=== PATIENT | female | born 1950 | race Caucasian/White ===

== ENCOUNTER 2016-10-11 13:25 | Inpatient (IN) | payer MEDICARE ==
--- NOTE | 2016-10-11 15:01 | HP ---
SUPERVISING PHYSICIAN: Geo Beth M.D. CHIEF COMPLAINT: Asthma exacerbation. HISTORY OF PRESENT ILLNESS: Ms. Salguero is a 66 year-old female patient who has a history of asthma. She notes that she had been having an asthma attack daily for the last several days and had been using her nebulizer treatments, including Albuterol, without any significant relief. She was experiencing some chest tightness, increasing cough with some lower extremity edema and significant orthopnea with wheezing. She presented to the clinic today for evaluation and was found to be satting 83% on room air in Dr. Beth' office. She was in mild distress and given the underlying medical history of asthma with severe exacerbations in the past and having been requiring hospitalization in 2011 complicated by pneumonia MRSA, she was sent to the hospital for admission with an acute exacerbation of asthma with hypoxia. PAST MEDICAL HISTORY: 1. Asthma. 2. Hypertension. 3. Osteoarthritis. 4. Gout. 5. Rheumatoid arthritis. 6. Hemochromatosis. PAST SURGICAL HISTORY: 1. Dilatation and curettage. 2. Hysterectomy with bilateral salpingo-oophorectomy. 3. Bilateral knee replacements in 2010. 4. Fracture repair bilateral femurs with surgical reduction and internal fixation in 2013. 5. Exploratory laparotomy with appendectomy. CURRENT MEDICATIONS: 1. Valsartan 80 mg daily. 2. Trazodone 100 mg at bedtime. 3. Ventolin inhaler 2 puffs every 6 hours. 4. Robaxin 750 mg every 6 hours. 5. Bumex 2 mg daily. 6. Neurontin 300 mg at bedtime. 7. DuoNeb treatments every 6 hours if needed. 8. Oxycodone 20 mg twice daily. 9. Ropinirole 1 mg at bedtime. 10. Cymbalta 30 mg in the morning. 11. Caltrate 600 mg twice daily. 12. Align 1 mg daily. 13. Potassium chloride 20 mEq daily. 14. Allopurinol 300 mg every morning. 15. Fish oil 2,000 mg twice daily. 16. Singulair 10 mg daily. 17. Protonix 40 mg twice daily. 18. Prednisone 5 mg every other day. ALLERGIES: MORPHINE AND SULFONAMIDES. FAMILY HISTORY: Father from bone tumor. Mother from complications of coronary artery disease. SOCIAL HISTORY: The patient is retired. [place] She is . She does have a past history of smoking cigarettes but quit 25 years previously. She denies any alcohol usage. REVIEW OF SYSTEMS: CONSTITUTIONAL: Denies any fevers, chills, fatigue or essential weight loss or weight gain. CARDIOVASCULAR: Denies any chest pains, palpitations or syncopal episodes. RESPIRATORY: As noted in the History of Present Illness, positive for chronic cough, dyspnea or frequent wheezing with hypoxia and severe increasing dyspnea. GASTROINTESTINAL: Negative for any constipation, diarrhea, nausea or vomiting. MUSCULOSKELETAL: Negative for arthralgias. She does have chronic back pain. NEUROLOGIC: Denies any headaches , ataxia or any other neurological complaints. Last hospitalization was in 2011 for pneumonia complicated by MRSA requiring ICU admission but no intubation. CURRENT MEDICAL PROVIDERS: Allergies - Dr. Hanna Orthopedist - Dr. Carrasco Community Organization Director - Dr. Srinivasan Chief Quality Officer - Dr. Jignesh Maxwell and Back - Dr. Beckman PHYSICAL EXAMINATION: VITAL SIGNS: Temperature 98.7, blood pressure 118/58, pulse 96, respirations 20 to 24, O2 sat showing 85% on room air at rest. GENERAL: The patient is well-developed, well-nourished. Appears to be in mild distress secondary to increasing work to breathe. HEENT: Tympanic membranes are clear bilaterally. Oropharynx is pink and moist without any lesions. Posterior pharynx is pink. NECK: No jugular venous distention. Neck is supple. CHEST: Lungs are notably coarse throughout but no rales or rhonchi are noted. She does have diffuse expiratory wheezing. CARDIOVASCULAR: Regular rate and rhythm without any appreciable murmurs, gallops, or rubs. ABDOMEN: Soft, non-tender. Positive bowel sounds. EXTREMITIES: No clubbing, cyanosis or edema. NEUROLOGIC: She is alert and oriented times three. LABORATORY: White count 8.4, hemoglobin 10.2, hematocrit 31.2, platelet count 276,000. Differential shows no left shift. Coagulation studies show to be within normal limits. Chemistries show normal electrolytes with just a low potassium of 3.5, BUN 19, creatinine 1.12, glucose 76, magnesium 1.8, calcium 8.6. Liver functions show to be within normal limits. BNP was 50. MICROBIOLOGY: Blood cultures are pending. Sputum culture is pending. RADIOLOGY: Chest x-ray on admission to the Medical/Surgical floor per radiology interpretation showed mild peribronchial cuffing possibly secondary to bronchitis with reactive airway disease. ASSESSMENT: 1. Acute exacerbation of asthma with chronic bronchitis and reactive airway disease with notable hypoxia at room air 83% at rest. 2. Hypertension. 3. Osteoarthritis. 4. Gout. 5. Rheumatoid arthritis. 6. Hemochromatosis. PLAN: The patient was directly admitted from Dr. Beth' office for exacerbation of asthma. Upon admission she was in mild distress, started on breathing treatment and oxygen and given 125 mg of Solu-Medrol IV. Will also start her on some antibiotics to include Rocephin and Azithromycin as her x-ray did show some bronchitis with some peribronchial cuffing and the patient has a significant history of past MRSA infection resulting in pneumonia requiring extensive hospitalization secondary to another asthma exacerbation. Will restart her medications once they have been updated and verified. Will start her on DVT prophylaxis as per protocol. Will also start her on aggressive pulmonary hygiene with pulmonary toiletry and plan to get an ambulatory study tomorrow to further evaluate her oxygenation needs. Anticipate length of stay to be 2 to 3 days. Until then, will continue to monitor the patient closely and treat appropriately. #[id number] [facility]
[2016-10-11] MEDS ORDERED: ALBUTEROL SULFATE 2.5 MG/3 ML VIAL NEB PRN (15:19)
[2016-10-11] MEDS ORDERED: ONDANSETRON INJ 4 MG/2 ML VIAL IV PRN (15:19)
[2016-10-11] MEDS ORDERED: IV SET AND CAP CHANGE INJ INJ SCH (15:30)
--- NOTE | 2016-10-11 16:06 | RAD ---
EXAM DESCRIPTION: Chest,2 Views CLINICAL HISTORY: Asthma exacerbation COMPARISON: None FINDINGS: Cardiac silhouette is within normal limits. There is no focal parenchymal or pleural disease. There is no acute osseous process visualized. There is mild peribronchial cuffing which could be secondary to bronchitis changes of unknown age. Reactive airway disease is a consideration. IMPRESSION: No evidence of acute cardiopulmonary disease. Mild peribronchial cuffing could be secondary to bronchitis changes/reactive airway disease. Electronically signed by: Crescencio Cha MD 10/11/2016 4:04 PM MEASUREMENT SUPERVISOR
[2016-10-11] MEDS ORDERED: SODIUM CHL 0.9% 50ML MIN-BAG+ 50 ML IVPB ONE (16:47)
[2016-10-11] MEDS ORDERED: cefTRIAXone SODIUM 1 GM VIAL ONE (16:47)
[2016-10-11] MEDS: methylPREDNISolone SODIUM SUC 125 MG/2 ML VIAL IV SCH ×2 (16:48→21:28)
[2016-10-11] MEDS: AZITHROMYCIN 250 MG TAB PO SCH (16:49)
[2016-10-11] MEDS: cefTRIAXone SODIUM 1 GM in SODIUM CHL 0.9% 50ML MIN-BAG+ 50 ML IVPB SCH (16:50)
[2016-10-11] MEDS: IPRATROPIUM/ALBUTEROL 3 ML VIAL NEB SCH ×2 (17:50→20:32)
[2016-10-11] MEDS ORDERED: POTASSIUM CHLORIDE 20 MEQ PO SCH (21:00)
[2016-10-11] MEDS ORDERED: OMEGA PO SCH (21:00)
[2016-10-11] MEDS ORDERED: CALCIUM CARBONATE 600 MG PO SCH (21:00)
[2016-10-11] MEDS ORDERED: FATTY ACIDS PO SCH (21:00)
[2016-10-11] MEDS ORDERED: OXYCODONE HCL 20 MG PO SCH (21:00)
[2016-10-11] MEDS ORDERED: POTASSIUM CHLORIDE 20 MEQ TAB ONE (21:06)
[2016-10-11] MEDS: GABAPENTIN 300 MG CAP PO SCH (21:25)
[2016-10-11] MEDS: traZODone HCL 100 MG TAB PO SCH (21:25)
[2016-10-11] MEDS: METHOCARBAMOL 750 MG TAB PO SCH (21:26)
[2016-10-11] MEDS: PANTOPRAZOLE SODIUM TAB 40 MG PO SCH (21:26)
[2016-10-11] MEDS: SODIUM CHLORIDE 0.9% (FLUSH) 10 ML SYG IV SCH (21:29)
--- NOTE | 2016-10-11 23:13 | PCM.CORE ---
Physician DVT/VTE - Nurse DVT Assessment & Total Each Risk Factor Represents 2 Points: Age 60-74 Each Risk Factor is 1 Point: Serious Lung disease (pnemonia <1month, COPD, emphysema,etc) DVT Assessment Score: 3 - 3-4 High Risk Treatments: Early Ambulation *, Sequential Compression Device Pharmacological: Enoxaparin 40 mg SQ Daily
[2016-10-11] MEDS: ACETAMINOPHEN 325 MG TAB PO PRN (23:16)
[2016-10-11] MEDS ORDERED: LIDOCAINE HCL 2% (MOUTH-THROAT) 15 ML UD MT PRN (23:25)
[2016-10-12] MEDS: SODIUM CHLORIDE 0.9% (FLUSH) 10 ML SYG IV PRN ×2 (03:02→06:26)
[2016-10-12] MEDS: METHOCARBAMOL 750 MG TAB PO SCH ×4 (03:02→21:21)
[2016-10-12] MEDS: methylPREDNISolone SODIUM SUC 125 MG/2 ML VIAL IV SCH ×3 (03:03→15:09)
[2016-10-12] MEDS ORDERED: PANTOPRAZOLE SODIUM IV 40 MG VIAL IV SCH (06:30)
[2016-10-12] MEDS: ACETAMINOPHEN 325 MG TAB PO PRN (06:51)
--- NOTE | 2016-10-12 06:55 | RAD ---
EXAM DESCRIPTION: XR CHEST 2 VIEWS 10/11/2016 3:27 PM CLINICAL HISTORY: 66 y/o , F, Pneumonia COMPARISON: PA and lateral views the chest October 11, 2016 FINDINGS: There is increasing moderate peribronchial thickening and ground-glass opacities throughout the lungs bilaterally. There is no focal consolidation or pleural effusion. The heart is normal in size. The mediastinal contours are normal in appearance. The osseous structures are age appropriate. The upper abdomen is grossly normal. IMPRESSION: Increasing peribronchial thickening and diffuse ground-glass opacity throughout the lungs bilaterally, likely representing the diffuse infectious process. Electronically signed by: Marybeth Bradshaw MD 10/12/2016 06:54
[2016-10-12] MEDS ORDERED: ENOXAPARIN SODIUM 40 MG/0.4 ML SYG SUBCU ONE (08:16)
[2016-10-12] MEDS ORDERED: BIFIDOBACTERIUM INFANTIS 4 MG CAP PO SCH (09:00)
[2016-10-12] MEDS: IPRATROPIUM/ALBUTEROL 3 ML VIAL NEB SCH ×5 (09:13→19:45)
[2016-10-12] MEDS: PANTOPRAZOLE SODIUM TAB 40 MG PO SCH ×2 (09:20→21:21)
[2016-10-12] MEDS: ALLOPURINOL 300 MG TAB PO SCH (09:20)
[2016-10-12] MEDS: MONTELUKAST SODIUM 10 MG TAB PO SCH (09:20)
[2016-10-12] MEDS: BUMETANIDE TAB 2 MG TAB PO SCH (09:20)
[2016-10-12] MEDS: OMEGA-3 FATTY ACIDS 1,000 MG CAP PO SCH ×2 (09:20→21:08)
[2016-10-12] MEDS: VALSARTAN 80 MG TAB PO SCH (09:20)
[2016-10-12] MEDS: DULoxetine HCL 30 MG CAP PO SCH (09:20)
[2016-10-12] MEDS: SODIUM CHLORIDE 0.9% (FLUSH) 10 ML SYG IV SCH ×2 (09:21→21:22)
[2016-10-12] MEDS ORDERED: IBUPROFEN 400 MG TAB PO PRN (09:48)
[2016-10-12] MEDS: ENOXAPARIN SODIUM 40 MG/0.4 ML SYG SUBCU SCH (11:05)
[2016-10-12] MEDS ORDERED: SODIUM CHL 0.9% 50ML MIN-BAG+ 50 ML IVPB ONE (14:28)
[2016-10-12] MEDS ORDERED: CALCIUM CARBONATE-VITAMIN D 500 MG TAB ONE (14:29)
[2016-10-12] MEDS ORDERED: cefTRIAXone SODIUM 1 GM VIAL ONE (14:29)
[2016-10-12] MEDS ORDERED: POTASSIUM CHLORIDE 20 MEQ TAB ONE (14:29)
[2016-10-12] MEDS: AZITHROMYCIN 250 MG TAB PO SCH (15:12)
[2016-10-12] MEDS: cefTRIAXone SODIUM 1 GM in SODIUM CHL 0.9% 50ML MIN-BAG+ 50 ML IVPB SCH (15:14)
[2016-10-12] MEDS: CALCIUM CARBONATE-VITAMIN D 500 MG TAB PO SCH (17:32)
[2016-10-12] MEDS: POTASSIUM CHLORIDE 20 MEQ TAB PO SCH (17:32)
[2016-10-12] MEDS: traZODone HCL 100 MG TAB PO SCH (21:08)
[2016-10-12] MEDS: GABAPENTIN 300 MG CAP PO SCH (21:21)
[2016-10-13] MEDS: METHOCARBAMOL 750 MG TAB PO SCH ×4 (02:38→21:48)
[2016-10-13] MEDS: methylPREDNISolone SODIUM SUC 125 MG/2 ML VIAL IV SCH ×2 (02:42→15:32)
--- NOTE | 2016-10-13 07:20 | RAD ---
EXAM DESCRIPTION: XR CHEST 2 VIEWS CLINICAL HISTORY: COPD exacerbation COMPARISON: October 12, 2016 FINDINGS: The cardiomediastinal silhouette is unremarkable. There is subsegmental atelectasis or scarring in the left lung base, but no airspace consolidation or pleural effusion is identified period the lung volumes are within normal range period There is no pneumothorax or acute fracture. IMPRESSION: Negative exam. Electronically signed by: Jeffy Landrum DO 10/13/2016 07:18
[2016-10-13] MEDS: POTASSIUM CHLORIDE 20 MEQ TAB PO SCH ×2 (07:55→17:36)
[2016-10-13] MEDS: CALCIUM CARBONATE-VITAMIN D 500 MG TAB PO SCH ×2 (07:55→17:36)
[2016-10-13] MEDS: IPRATROPIUM/ALBUTEROL 3 ML VIAL NEB SCH ×4 (08:05→19:49)
[2016-10-13] MEDS: BUMETANIDE TAB 2 MG TAB PO SCH (09:09)
--- NOTE | 2016-10-13 09:09 | PN ---
SUPERVISING PHYSICIAN: Naif Jc MD DATE: 10/12/16 SUBJECTIVE: The patient feels like she is doing better today in efforts to breathe. She still has some wheezing and is now having a cough but still remains without any significant sputum production. She does remain afebrile. OBJECTIVE: Vital signs: Temperature 97.9, pulse 95, blood pressure 164/81, respirations 18, 02 saturation 99% on room air. I&O: positive balance of 345 with 1270 in and 925 out. Weight 81.4 kg. CHEST: Lungs are better aerated today, although they remain coarse throughout with just some faint inspiratory and expiratory wheezing. They are diminished towards the bases. HEART regular rate and rhythm. ABDOMEN: Soft, non-tender, positive bowel sounds. EXTREMITIES: No cyanosis, clubbing, or edema. NEUROLOGICAL: Alert and oriented x3. LABORATORY: White count remains within normal limits at 6.1, hemoglobin and hematocrit stable at 10.2 and 30.7. Platelet count 255,000, differential today shows a left shift. Chemistries show normal electrolytes. Potassium 4.1, BUN 25, creatinine 1.0, calcium 9.1, glucose 277. MICROBIOLOGY: Sputum cultures pending. Blood cultures negative after 24 hours. MRSA culture pending. RADIOLOGY: Repeat chest x-ray today per radiology interpretation shows increasing peribronchial thickening and increased ground-glass opacities throughout the lungs bilaterally likely representing a diffuse infectious process. ASSESSMENT: 1. Acute exacerbation of asthma with chronic obstructive bronchitis and reactive airways disease with notable hypoxemia on room air, 83% at rest, showing clinical improvement after starting on steroids and IV antibiotics, now with concerns for bilateral pneumonia as evidenced on radiographic studies. 2. Hypertension. 3. Osteoarthritis. 4. Gout. 5. Rheumatoid arthritis. 6. Hemochromatosis. PLAN: The patient will remain on antibiotics at this point as the radiographic studies do demonstrate concerns for developing pneumonia. She is on Rocephin and azithromycin currently. Sputum cultures are pending. Will certainly target antibiotic therapy after we get culture results back as needed. She will remain on Solu-Medrol, I decreased the Solu-Medrol to 60 mg every 12 hours. Will continue with aggressive pulmonary hygiene and close monitoring. Will plan to repeat laboratory studies in the morning as well as chest x-ray. Anticipate maybe discharging to [place] depending on reevaluation and clinically progression. Until the, we will continue to monitor patient closely and treat appropriately. #[id number] [facility]
[2016-10-13] MEDS: BIFIDOBACTERIUM INFANTIS 4 MG CAP PO SCH (09:10)
[2016-10-13] MEDS: MONTELUKAST SODIUM 10 MG TAB PO SCH (09:10)
[2016-10-13] MEDS: OMEGA-3 FATTY ACIDS 1,000 MG CAP PO SCH ×2 (09:10→21:48)
[2016-10-13] MEDS: DULoxetine HCL 30 MG CAP PO SCH (09:11)
[2016-10-13] MEDS: VALSARTAN 80 MG TAB PO SCH (09:11)
[2016-10-13] MEDS: PANTOPRAZOLE SODIUM TAB 40 MG PO SCH ×2 (09:11→21:48)
[2016-10-13] MEDS: ALLOPURINOL 300 MG TAB PO SCH (09:21)
[2016-10-13] MEDS: SODIUM CHLORIDE 0.9% (FLUSH) 10 ML SYG IV SCH ×2 (09:21→21:49)
[2016-10-13] MEDS: ENOXAPARIN SODIUM 40 MG/0.4 ML SYG SUBCU SCH (10:45)
[2016-10-13] MEDS ORDERED: SODIUM CHLORIDE 0.9% 10 ML VIAL INJ PRN (11:59)
--- NOTE | 2016-10-13 14:06 | PN ---
DATE: 10/13/16 SUBJECTIVE: The patient is sitting up in the bed and shows some improved ability to function and ambulation. Her ambulation studies have shown significant improvement in the hypoxia originally noted at the time of her admission to the hospital from the clinic. Less coughing. She is continuing on her medication nebulizer treatments. She is alert. No nausea or vomiting, no hemoptysis. LABORATORY: White count up to 13,200 with 85% neutrophils on corticosteroids. Hemoglobin stable at 10.2. Chemistries show potassium down to 3.5 and supplementation will be continued. BUN 23, creatinine 0.86, glucose 162. Cultures show sputum with a gram negative poppy, results by in the morning, as well as nasal surveillance culture gram positive cocci, results in the morning. Blood cultures are negative. Repeat chest x-ray today reveals chronic obstructive pulmonary disease findings, but no acute findings of infiltrate otherwise evident. ASSESSMENT: 1. Chronic obstructive pulmonary disease with an acute exacerbation requiring corticosteroids, oxygen supplementation as well as antibiotics and pulmonary hygiene to assist. Clinical improvement evident. 2. History of hypertension. 3. History of osteoarthritis. 4. History of gout. 5. History of rheumatoid arthritis. 6. History of hemochromatosis. PLAN: The patient will continue on Rocephin and azithromycin. Await culture results in the morning at which time outpatient therapy can be determined. Anticipate discharge in the morning on prednisone with a tapering dose and antibiotics per culture results. Close followup necessary. She will have close followup with Dr. Beth upon discharge. #[id number] [facility]
[2016-10-13] MEDS ORDERED: SODIUM CHL 0.9% 50ML MIN-BAG+ 50 ML IVPB ONE (15:23)
[2016-10-13] MEDS ORDERED: cefTRIAXone SODIUM 1 GM VIAL ONE (15:23)
[2016-10-13] MEDS: cefTRIAXone SODIUM 1 GM in SODIUM CHL 0.9% 50ML MIN-BAG+ 50 ML IVPB SCH (15:31)
[2016-10-13] MEDS: AZITHROMYCIN 250 MG TAB PO SCH (15:32)
[2016-10-13] MEDS: GABAPENTIN 300 MG CAP PO SCH (21:47)
[2016-10-13] MEDS: traZODone HCL 100 MG TAB PO SCH (21:48)
[2016-10-14] MEDS: methylPREDNISolone SODIUM SUC 125 MG/2 ML VIAL IV SCH (02:42)
[2016-10-14] MEDS: SODIUM CHLORIDE 0.9% (FLUSH) 10 ML SYG IV PRN (02:43)
[2016-10-14] MEDS: METHOCARBAMOL 750 MG TAB PO SCH ×2 (02:44→08:41)
[2016-10-14 06:50] VITALS: BP 164/82; TEMP 97.2; O2SAT 98
[2016-10-14] MEDS: IPRATROPIUM/ALBUTEROL 3 ML VIAL NEB SCH ×2 (08:05→12:10)
[2016-10-14] MEDS: POTASSIUM CHLORIDE 20 MEQ TAB PO SCH (08:06)
[2016-10-14] MEDS: CALCIUM CARBONATE-VITAMIN D 500 MG TAB PO SCH (08:06)
[2016-10-14] MEDS: PANTOPRAZOLE SODIUM TAB 40 MG PO SCH (08:40)
[2016-10-14] MEDS: ALLOPURINOL 300 MG TAB PO SCH (08:40)
[2016-10-14] MEDS: VALSARTAN 80 MG TAB PO SCH (08:40)
[2016-10-14] MEDS: MONTELUKAST SODIUM 10 MG TAB PO SCH (08:40)
[2016-10-14] MEDS: BIFIDOBACTERIUM INFANTIS 4 MG CAP PO SCH (08:40)
[2016-10-14] MEDS: DULoxetine HCL 30 MG CAP PO SCH (08:41)
[2016-10-14] MEDS: SODIUM CHLORIDE 0.9% (FLUSH) 10 ML SYG IV SCH (08:41)
[2016-10-14] MEDS: OMEGA-3 FATTY ACIDS 1,000 MG CAP PO SCH (08:41)
[2016-10-14] MEDS: BUMETANIDE TAB 2 MG TAB PO SCH (08:43)
[2016-10-14] MEDS: ENOXAPARIN SODIUM 40 MG/0.4 ML SYG SUBCU SCH ×2 (08:44→10:43)
--- NOTE | 2016-10-14 11:01 | DS ---
DISCHARGE DIAGNOSIS: 1. Chronic obstructive pulmonary disease with an acute exacerbation requiring corticosteroid administration, oxygen supplementation with antibiotics and pulmonary hygiene with clinical improvement noted. 2. Acute bronchitis with culture proven Escherichia coli infection with multiple resistance and requiring Augmentin to treat as an outpatient and followup necessary. 3. 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 4. History of hypertension. 5. History of osteoarthritis. 6. History of gout. 7. History of rheumatoid arthritis. 8. History of hemochromatosis. 9. Moderate hypoxia, showing improvement as treatment course continued. HISTORY OF PRESENT ILLNESS: This 66-year-old, white female was admitted to the hospital from Dr. Beth' office because of significant hypoxia with pulse oximetry 83% on room air in his office. She had respiratory symptoms which required vigorous intervention, so hospitalization was initiated and close followup is necessary. She has had a history of a methicillin-resistant Staphylococcus aureus pneumonia in 2011 and now presenting with hypoxia requiring more vigorous care to prevent further worsening of her symptoms. LABORATORY: White count 8,400, up to 13,200 probably because of the institution of corticosteroid administration. Hemoglobin stable at 10.2. INR 1.06. Chemistries showed potassium 3.5, sodium 138, BUN 23, creatinine 0.86, glucose 162 on discharge, calcium 9.2. Beta natriuretic peptide 50. Liver enzymes normal. Albumin 3.4. Urinalysis generally clean. Cultures revealed sputum culture E. coli with multiple resistance treating with Augmentin as an outpatient. Nasal surveillance culture positive for MRSA treated with decolonization with ointment to the nose, Hibiclens showers, and a week of Bactrim p.o.. Blood cultures are negative. X-rays of the chest revealed chronic obstructive pulmonary disease with no significant infiltrates evident at the time of discharge. HOSPITAL COURSE: The patient was feeling improved on the morning of discharge, though still requires close followup and management as treatment course is altered and changed and augmented in order to further treat some of the underlying culture results as the patient is changed over to outpatient followup. PLAN: The patient is discharged home to have followup with Dr. Beth' office next Tuesday, preferably in the morning. The patient will be initiated on decolonization program with patient instructions given. She will have nightly application of ointment into the nostrils, shower with diluted Hibiclens to leave on the skin for at least 1 to 2 minutes before rinsing on a nightly basis for at least the next 7 to 10 days. See home medications. Avoid smoke exposure. Observe for side effects to the Augmentin and the Bactrim which are taken. Return if not improving. Close followup necessary. #[id number] [facility]
== END 2016-10-14 12:55 | disposition home or self-care (01) | DRG 191 ==
LOC: MS 13:25
PROVIDERS: ADMIT Family Medicine; ATTEND Emergency Medicine
DX: J44.0 Chronic obstructive pulmonary disease with (acute) lower respiratory infection (principal); J45.901 Unspecified asthma with (acute) exacerbation; J44.1 Chronic obstructive pulmonary disease with (acute) exacerbation; J20.9 Acute bronchitis, unspecified; I10 Essential (primary) hypertension; M19.90 Unspecified osteoarthritis, unspecified site; M06.9 Rheumatoid arthritis, unspecified; M10.9 Gout, unspecified; E83.119 Hemochromatosis, unspecified; B96.20 Unspecified Escherichia coli [E. coli] as the cause of diseases classified elsewhere; Z96.653 Presence of artificial knee joint, bilateral; Z79.52 Long term (current) use of systemic steroids; Z88.5 Allergy status to narcotic agent; Z88.2 Allergy status to sulfonamides; Z87.891 Personal history of nicotine dependence; Z22.322 Carrier or suspected carrier of Methicillin resistant Staphylococcus aureus

== ENCOUNTER → 2017-01-21 | Outpatient (CLI) | payer MEDICARE | END | disposition home or self-care (01) | LOC: GMAJ 10:03 | PROVIDERS: ATTEND Family Medicine | DX: M06.9 Rheumatoid arthritis, unspecified (principal); D64.9 Anemia, unspecified; E53.8 Deficiency of other specified B group vitamins; D80.3 Selective deficiency of immunoglobulin G [IgG] subclasses; D83.9 Common variable immunodeficiency, unspecified; E83.119 Hemochromatosis, unspecified; I10 Essential (primary) hypertension ==

== ENCOUNTER → 2017-04-27 | Outpatient (CLI) | payer MEDICARE ==
--- NOTE | 2017-04-28 08:30 | US ---
EXAM DESCRIPTION: Extremity,Lower Kd Arteries CLINICAL HISTORY: 67 years, Female, OPEN WOUND LEFT LEG COMPARISON: None. FINDINGS: Multiphasic waveforms are noted in the right lower extremity arteries. Color Doppler images show no significant stenotic lesion. Peak systolic velocities in the right lower extremity as follows: Right common femoral artery 77 centimeters/second Proximal right superficial femoral artery 84 centimeters/second Mid right superficial femoral artery 76 centimeters/second Distal right superficial femoral artery 65 centimeters/second Right popliteal artery 49 centimeters/second Right posterior tibial artery 44 centimeters/second Right dorsalis pedis artery 14 centimeters/second Right peroneal artery 42 centimeters/second Multiphasic waveforms are noted in the left lower extremity arteries. Color Doppler images show no significant stenotic lesion. Peak systolic velocities in the left lower extremity as follows: Left common femoral artery 70 centimeters/second Proximal left superficial femoral artery 103 centimeters/second Mid left superficial femoral artery 84 centimeters/second Distal left superficial femoral artery 83 centimeters/second Left popliteal artery 64 centimeters/second Left posterior tibial artery 36 centimeters/second Left dorsalis pedis artery 25 centimeters/second Left peroneal artery 35 centimeters/second IMPRESSION: Negative exam. Multiphasic waveforms in the bilateral lower extremity arteries without evidence of hemodynamically significant arterial stenosis. Electronically signed by: Jeffy Landrum MD 04/28/2017 8:29 AM CDT Workstation: [id number]
== END ==
LOC: US 10:37
PROVIDERS: ATTEND Surgery
DX: S81.812A Laceration without foreign body, left lower leg, initial encounter (principal)

== ENCOUNTER → 2017-06-30 | Outpatient (CLI) | payer MEDICARE | END | disposition home or self-care (01) | LOC: GMAJ 12:28 | PROVIDERS: ATTEND Family Medicine | DX: E83.119 Hemochromatosis, unspecified (principal); M06.9 Rheumatoid arthritis, unspecified; I10 Essential (primary) hypertension; D80.3 Selective deficiency of immunoglobulin G [IgG] subclasses ==

== ENCOUNTER → 2017-11-30 | Outpatient (CLI) | payer MEDICARE | LOC: GMAJ 14:14 | PROVIDERS: ATTEND Family Medicine | DX: E83.110 Hereditary hemochromatosis (principal) ==

== ENCOUNTER → 2018-07-07 | Outpatient (CLI) | payer MEDICARE | LOC: GMAJ 10:34 | PROVIDERS: ATTEND Family Medicine | DX: D64.9 Anemia, unspecified (principal); M10.00 Idiopathic gout, unspecified site ==

== ENCOUNTER → 2018-08-29 | Outpatient (CLI) | payer MEDICARE | LOC: GMAJ 16:35 | PROVIDERS: ATTEND Family Medicine | DX: D64.9 Anemia, unspecified (principal) ==

== ENCOUNTER 2019-02-24 22:11 | Emergency (ER) | payer MEDICARE ==
[2019-02-24] MEDS ORDERED: SODIUM CHLORIDE 0.9% 1000ML 1,000 ML IVS ONE ×2 (22:29→23:52)
--- NOTE | 2019-02-24 22:41 | RAD ---
EXAM DESCRIPTION: Chest XR,1 View CLINICAL HISTORY: weakness, dyspnea COMPARISON: October 13, 2016 FINDINGS: Cardiac silhouette is within normal limits. Abnormal parenchymal opacity of the right lower lung worrisome for an infectious process. Recommend follow-up to demonstrate complete resolution and to exclude other etiologies. EKG leads project over the chest. There is no acute osseous process visualized. IMPRESSION: Abnormal parenchymal opacity of the right lower lung worrisome for an infectious process. Recommend follow-up to demonstrate complete resolution and to exclude other etiologies. Electronically signed by: Crescencio Cha MD 02/24/2019 10:39 PM CDT
[2019-02-24] MEDS ORDERED: DEXTROSE 5% 250ML 250 ML ONE (22:58)
[2019-02-24] MEDS ORDERED: NOREPINEPHRINE BITARTRATE 4 MG/4 ML VIAL IVPB ONE (22:58)
[2019-02-24] MEDS ORDERED: NOREPINEPHRINE BITARTRATE 4 MG in DEXTROSE 5% 250ML 250 ML IVPB ONE (23:00)
[2019-02-24] MEDS ORDERED: PIPERACILLIN/TAZOBACTAM 4.5 GM in SODIUM CHLORIDE 0.9% 100ML 100 ML IVPB ONE (23:21)
[2019-02-24] MEDS ORDERED: PIPERACILLIN/TAZOBACTAM 2.25 GM VIAL IVPB ONE (23:23)
[2019-02-24] MEDS ORDERED: SODIUM CHLORIDE 0.9% 100ML 100 ML IVPB ONE (23:23)
[2019-02-24 23:36] VITALS: TEMP 96.5; O2SAT 91
--- NOTE | 2019-02-24 23:36 | ED.PDOC ---
History of Present Illness - General Chief Complaint: General Stated Complaint: Generalized weakness, hypotension Time Seen by Provider: 02/24/19 23:07 Exam Limitations: no limitations - History of Present Illness Initial Comments: Maxine Salguero 69 y/o female brought by EMS after her grandson went to check on her tonight since she was not at a birthday republic[employer] tonight grandson and ems needs to break the door to get in her house.she was found on her recliner too weak to get up.Patient stated she fell on the floor this am while on her way to the bathroom felt dizzy and unable to get up since she felt too weak but able to pushed herself and sat on her recliner until help arrived tonight. Timing/Duration: 24 hours Severity: moderate Improving Factors: nothing Worsening Factors: nothing Associated Symptoms: other - see hpi Allergies/Adverse Reactions: Allergies Morphine Adverse Reaction (Verified 10/02/12 06:43) Home Medications: Ambulatory Orders Allopurinol 300 mg PO AM 09/30/12 Bifidobacterium Infantis [Align] 1 mg PO DAILY 09/30/12 Duloxetine HCl [Cymbalta] 30 mg PO AM 09/30/12 Montelukast Sodium [Singulair] 10 mg PO DAILY 09/30/12 Pantoprazole Sodium [Protonix] 40 mg PO BID 09/30/12 Calcium Carbonate [Caltrate 600] 600 mg PO BID 12/27/13 [place]-3 Fatty Acids [Fish Oil] 2,000 mg PO BID 12/27/13 Potassium Chloride [Klor-Con] 20 meq PO BID 12/27/13 Prednisone 5 mg PO GISELA-OTH-DAY 12/27/13 Albuterol Inhaler [Ventolin Hfa Inhaler] 2 puff INH Q6HR 10/11/16 Bumetanide [Bumex] 2 mg PO DAILY 10/11/16 Gabapentin [Neurontin] 300 mg PO BEDTIME 10/11/16 Ipratropium-Albuterol [Ipratropium [place]/Albut] 1 codi IN Q6HRS 10/11/16 Methocarbamol 750 mg PO Q6HRS 10/11/16 Ropinirole Hydrochloride [Ropinirole HCl] 1 mg PO BEDTIME 10/11/16 Trazodone HCl 100 mg PO BEDTIME 10/11/16 Valsartan 80 mg PO DAILY 10/11/16 Oxycodone HCl 10 mg PO .Q4-6HR PRN 10/12/16 Oxycodone HCl 20 mg PO BID 10/12/16 Amoxicillin & Pot Clavulanate [Augmentin Tab] 1 tab PO BID #14 tab 10/14/16 Chlorhexidine Gluconate [Hibiclens] 4 % EX DAILY #60 ml 10/14/16 Sulfamethoxazole-Trimethoprim [Bactrim Ds 800-160 mg] 1 tab PO BID #14 tab 10/14/16 Review of Systems - Review of Systems Constitutional: States: see HPI, weakness EENTM: States: no symptoms reported Respiratory: States: no symptoms reported Cardiology: States: no symptoms reported Gastrointestinal/Abdominal: States: no symptoms reported Genitourinary: States: no symptoms reported Musculoskeletal: States: back pain - chronic Skin: States: no symptoms reported All other Systems: Reviewed and Negative, No Change from Baseline Past Medical History (General) - Patient Medical History Hx Seizures: No Hx Stroke: No Hx Dementia: No Hx Asthma: Yes Hx of COPD: No Hx Cardiac Disorders: No Hx Congestive Heart Failure: No Hx Pacemaker: No Hx Hypertension: Yes Hx Thyroid Disease: No Hx Diabetes: No Hx Gastroesophageal Reflux: No Hx Renal Disease: No Hx Cancer: No Hx of HIV: No Hx Hepatitis C: No Hx MRSA: Yes - Nasal Swab 2017 MRSA Source:: Sputum Surgical History: other - hysterectomy,both hips - Vaccination History Hx Tetanus, Diphtheria Vaccination: No Hx Influenza Vaccination: No Hx Pneumococcal Vaccination: No Immunizations Up to Date: Yes - Social History Hx Tobacco Use: No Hx Chewing Tobacco Use: No Hx Alcohol Use: No Hx Substance Use: No Hx Substance Use Treatment: No Hx Depression: No Feels Threatened In Home Enviroment: No Feels Threatened In a Relationship: No Hx Physical Abuse: No Hx Emotional Abuse: No Hx Suspected Abuse: No - Activities of Daily Living Patient Lives Alone: Yes - home Hospice Agency (if applicable):: None Grooming Ability: Independent Eating (Feeding) Ability: Independent Toileting Ability: Independent - Female History Patient is a Female of Child Bearing Age (10 -59 yrs old): No Family Medical History - Family History Mother Family History: Unknown Living Status: Physical Exam - Physical Exam General Appearance: Alert, No apparent distress, Other - speech fluent Eye Exam: bilateral normal Ears, Nose, Throat: hearing grossly normal, normal ENT inspection Neck: non-tender, full range of motion, supple, normal inspection Respiratory: no respiratory distress, rales - bases Cardiovascular/Chest: regular rate, rhythm, no murmur Peripheral Pulses: radial,right: 1+, radial,left: 1+ Gastrointestinal/Abdominal: soft, tenderness - lower abdomen Back Exam: no CVA tenderness, no vertebral tenderness Extremity: no pedal edema, no calf tenderness, pelvis stable, other - rom not pain ful both hips Neurologic: alert, oriented x 3 Skin Exam: normal color, other - multiple skin abrasions estremities Progress - Progress Progress: 02/24/19 23:45 Vital Signs - 8 hr 02/24/19 02/24/19 02/24/19 22:15 22:25 23:00 Temperature 96.7 F L 96.5 F L Pulse Rate 60 Pulse Rate [ 60 82 pulse ox] Respiratory 16 16 16 Rate Blood Pressure 74/44 60/46 [Left Arm] O2 Sat by Pulse 84 L 91 L Oximetry - Results/Orders Results/Orders: Vital Signs - 24 hr 02/24/19 02/24/19 02/24/19 22:15 22:25 23:00 Temperature 96.7 F L 96.5 F L Pulse Rate 60 Pulse Rate [ 60 82 pulse ox] Respiratory 16 16 16 Rate Blood Pressure 74/44 60/46 [Left Arm] O2 Sat by Pulse 84 L 91 L Oximetry 02/24/19 22:25 EKG Assessment ONCE 02/24/19 22:26 ABG [Arterial Blood Gas] Stat 02/24/19 22:30 EKG STAT 02/24/19 23:00 Norepinephrine Bitartrate [Levophed] 4 mg Dextrose 5% 250Ml [D5W 250ml] 250 ml IVPB ONCE 02/24/19 23:21 Piperacillin/Tazobactam [Zosyn] 4.5 gm Sodium Chloride 0.9% 100Ml [NS (NACL 0.9%) 100ml] 100 ml IVPB ONCE 02/24/19 23:40 BLOOD CULTURE Stat 02/24/19 23:50 Urine Culture Stat URINALYSIS Stat 02/24/19 23:52 Sodium Chloride 0.9% 1000ML [Ns 1000 ml] 1,000 ml IVS ONCE Laboratory Results - last 24 hr 02/24/19 02/24/19 02/24/19 22:24 22:24 22:24 WBC 15.6 H RBC 4.54 Hgb 11.9 L Hct 37.3 MCV 82.3 MCH 26.2 L MCHC 31.8 L RDW 19.9 H Plt Count 331 MPV 7.1 L Absolute Neuts (auto) 13.20 H Absolute Lymphs (auto) 1.80 Absolute Monos (auto) 0.60 Absolute Eos (auto) 0.00 Absolute Basos (auto) 0.00 Neutrophils % 84.5 H Neutrophils % (Manual) 29.0 L Lymphocytes % 11.4 L Lymphocytes % (Manual) 19.0 Monocytes % 4.0 Monocytes % (Manual) 3.0 Eosinophils % 0.0 L Basophils % 0.1 Band Neutrophils 43.0 H* Metamyelocytes 6.0 H Platelet Estimate Normal Poikilocytosis 1+ Anisocytosis 4+ Sodium 136 Potassium 5.0 Chloride 104 Carbon Dioxide 18 L Anion Gap 19.0 H BUN 29 H Creatinine 2.27 H BUN/Creatinine Ratio 12.8 Random Glucose 66 L Serum Osmolality 276.0 Lactic Acid 4.4 H* Calcium 9.0 Total Bilirubin 0.8 AST 56 H ALT 22 Alkaline Phosphatase 65 Creatine Kinase 1238 H* CK-MB (CK-2) 24.5 H* CK-MB (CK-2) % 1.98 Troponin I 0.02 B-Natriuretic Peptide 129.0 H Serum Total Protein 6.9 Albumin 3.0 L Globulin 3.9 H Albumin/Globulin Ratio 0.8 L - EKG/XRAY/CT XRAY: chest - lower lobe opacity Departure - Departure Clinical Impression: Sepsis associated hypotension Fall Qualifiers: Encounter type: initial encounter Qualified Code(s): W19.XXXA - Unspecified fall, initial encounter Rhabdomyolysis Qualifiers: Rhabdomyolysis type: non-traumatic Qualified Code(s): M62.82 - Rhabdomyolysis Pneumonia Qualifiers: Pneumonia type: due to unspecified organism Laterality: right Lung location: lower lobe of lung Qualified Code(s): J18.1 - Lobar pneumonia, unspecified organism Time of Disposition: 00:14 Disposition: Transfer to Hospital Condition: Serious Departure Forms: Patient Portal Self Enrollment Referrals: Geo Beth MD [Primary Care Provider] - 1-2 Weeks Home Medications: Ambulatory Orders Allopurinol 300 mg PO AM 09/30/12 Bifidobacterium Infantis [Align] 1 mg PO DAILY 09/30/12 Duloxetine HCl [Cymbalta] 30 mg PO AM 09/30/12 Montelukast Sodium [Singulair] 10 mg PO DAILY 09/30/12 Pantoprazole Sodium [Protonix] 40 mg PO BID 09/30/12 Calcium Carbonate [Caltrate 600] 600 mg PO BID 12/27/13 [place]-3 Fatty Acids [Fish Oil] 2,000 mg PO BID 12/27/13 Potassium Chloride [Klor-Con] 20 meq PO BID 12/27/13 Prednisone 5 mg PO GISELA-OTH-DAY 12/27/13 Albuterol Inhaler [Ventolin Hfa Inhaler] 2 puff INH Q6HR 10/11/16 Bumetanide [Bumex] 2 mg PO DAILY 10/11/16 Gabapentin [Neurontin] 300 mg PO BEDTIME 10/11/16 Ipratropium-Albuterol [Ipratropium [place]/Albut] 1 codi IN Q6HRS 10/11/16 Methocarbamol 750 mg PO Q6HRS 10/11/16 Ropinirole Hydrochloride [Ropinirole HCl] 1 mg PO BEDTIME 10/11/16 Trazodone HCl 100 mg PO BEDTIME 10/11/16 Valsartan 80 mg PO DAILY 10/11/16 Oxycodone HCl 10 mg PO .Q4-6HR PRN 10/12/16 Oxycodone HCl 20 mg PO BID 10/12/16 Amoxicillin & Pot Clavulanate [Augmentin Tab] 1 tab PO BID #14 tab 10/14/16 Chlorhexidine Gluconate [Hibiclens] 4 % EX DAILY #60 ml 10/14/16 Sulfamethoxazole-Trimethoprim [Bactrim Ds 800-160 mg] 1 tab PO BID #14 tab 10/14/16 Transfer to Outside Facility - Transfer Information Accepting Provider:: Dr. Ruddy Kamara Accepting Facility: [facility] Reason for Transfer: required specialist not available - qualitative researcher
--- NOTE | 2019-02-24 23:44 | RAD ---
EXAM: Pelvis CLINICAL INDICATION: Patient fell COMPARISON: There is no previous study for comparison. IMPRESSION: A single view of the pelvis reveals an intact bony ring. There are no fractures or bone lesions. The hip joints, SI joints, and pubic symphysis are unremarkable. IMPRESSION: Negative single view of the pelvis. Electronically signed by: Jean Phelps MD 02/24/2019 11:42 PM CDT
[2019-02-24] MEDS ORDERED: DEXTROSE 50% 25 GM/50 ML SYG IV ONE ×2 (23:55→23:58)
[2019-02-25 00:46] VITALS: BP 109/55
== END 2019-02-25 00:46 | disposition short-term general hospital (02) ==
LOC: ER 22:11
DX: A41.9 Sepsis, unspecified organism (principal); J18.1 Lobar pneumonia, unspecified organism; I95.89 Other hypotension; N17.9 Acute kidney failure, unspecified; M62.82 Rhabdomyolysis; T14.8XXA Other injury of unspecified body region, initial encounter; J45.909 Unspecified asthma, uncomplicated; I10 Essential (primary) hypertension; W18.30XA Fall on same level, unspecified, initial encounter; Z88.5 Allergy status to narcotic agent; Z79.899 Other long term (current) drug therapy; Y92.000 Kitchen of unspecified non-institutional (private) residence as the place of occurrence of the external cause
CPT/HCPCS: 36415; 36600; 71045; 72170; 80053; 81001; 82550; 82553; 82803; 82805; 82948; 83605; 83880; 84484; 85025; 87040; 87086; 93005; J2543; J7030; J7050; J7060; J7799